=== PATIENT | male | born 1955 | race Caucasian/White ===

== ENCOUNTER 2017-09-17 05:18 | Day surgery (SDC) | payer BC ==
[~2017-09-17] VITALS: Ht 182.9 cm; Wt 166.0 kg
[2017-09-17] VITALS (9 sets, daily range): BP systolic 124–184; BP diastolic 58–90; PULSE 65–77; TEMP 97.5–98.5
[~2017-09-17 05:18] MED LIST: ASPIRIN 81M81 MG/TA2 PO; CIPRO 500MG TA500 MG PO; COZAAR100 MG PO; GLUCOPHAGE500 MG/TAB PO; HCTZ 25MG TAB25 MG PO; HUMIRA40 MG/0.8 MR; MITOMYCIN IV; NORVASC 10MG10 MG PO; VITAMIN E100 I3 PO
[2017-09-17] MEDS ORDERED: AVAPRO300 M1 PO (06:23)
[2017-09-17] MEDS ORDERED: HYGROTON 2525 MG/TAB PO (06:25)
[2017-09-18 01:52] VITALS: BP 149/66; PULSE 71; TEMP 98.5
[2017-09-18 05:09] VITALS: BP 147/68; PULSE 76; TEMP 98.1
== END 2017-09-18 09:30 | disposition home or self-care (01) ==
LOC: SDCO 05:18 → SURG 08:20 → SDCO 09-18 09:30
DX: R82.8 Abnormal findings on cytological and histological examination of urine (principal); N41.1 Chronic prostatitis; Z85.51 Personal history of malignant neoplasm of bladder; I10 Essential (primary) hypertension; L40.9 Psoriasis, unspecified; E66.9 Obesity, unspecified; M19.90 Unspecified osteoarthritis, unspecified site; E11.9 Type 2 diabetes mellitus without complications; Z79.84 Long term (current) use of oral hypoglycemic drugs; M06.9 Rheumatoid arthritis, unspecified; G47.33 Obstructive sleep apnea (adult) (pediatric); F17.210 Nicotine dependence, cigarettes, uncomplicated
CPT/HCPCS: OP; C1769; J0690; J2405; J2704; J3010; J7030; Q9967

== ENCOUNTER 2019-07-27 06:16 | Day surgery (SDC) | payer BC ==
[~2019-07-27] VITALS: Ht 182.9 cm; Wt 167.2 kg
[2019-07-27] VITALS (9 sets, daily range): BP systolic 125–165; BP diastolic 63–84; PULSE 79–91; TEMP 97.1–98
[~2019-07-27 06:16] MED LIST changes: +AVAPRO300 M1 PO; +HYGROTON 2525 MG/TAB PO
[2019-07-27] MEDS ORDERED: HYGROTON 2525 MG/TAB PO (06:50)
[2019-07-27] MEDS ORDERED: ALDACTONE 25MG25 M1 PO (06:51)
[2019-07-27] MEDS ORDERED: DIOVAN320 MG PO (06:51)
[2019-07-27] MEDS ORDERED: NORVASC 10MG10 MG PO (06:52)
[2019-07-27] MEDS ORDERED: HCTZ 25MG TAB25 MG PO (06:53)
[2019-07-27] MEDS ORDERED: VITAMIN E1000 U/CAP PO (06:54)
--- NOTE | 2019-07-27 06:54 | NUR ---
Patient did not bring a home medication list. Discussed medications with patient using the medication list from Dr. Gracia's office and from [facility] pharmacy. Patient states "I take some water pills and blood pressure pills". Listed medications to attempt to get the names of medications taken. Patient states "I think that's right" when medications listed. Completed medication reconciliation with patient, but he does not seem 100% sure of medications that he takes at home.
--- NOTE | 2019-07-27 11:00 | NUR ---
Patient arrived to the Surgical floor from PACU at this time, he is alert/oriented, vital signs stable, pain controlled, denies needs, tolerating Po intake
--- NOTE | 2019-07-27 18:37 | NUR ---
patient contniues to do well post TURBT, Vital signs stable, denies any pain, urine is clear/ yellow, no blood or clots noted, he is drinking plenty of water, stopping IVF per his request and made INT as he is drinking well, denies other needs
--- NOTE | 2019-07-27 20:45 | NUR ---
Pt. sitting up in bed at this time. Pt. is A&OX3, assessment complete. INT to rt. hand patent. Pt. voiding clear yellow urine. Pt. denies pain or other needs, call light within reach.
--- NOTE | 2019-07-28 06:08 | NUR ---
Pt. slept well through the night. Pt. remains A&Ox3. Urine remains Clear and yellow. Pt. denies needs.
[2019-07-28 08:06] VITALS: BP 140/71; PULSE 72; TEMP 97.7
--- NOTE | 2019-07-28 09:00 | NUR ---
Patient alert and oriented, answers questions appropriately. See assessment. No c/o urinary burning, frequency or hesitancy. Urinating adequate amounts. No c/o at this time.
--- NOTE | 2019-07-28 09:34 | NUR ---
Initial visit; Patient thanked [employer] for looking in on him and offering God's blessings.
--- NOTE | 2019-07-28 10:35 | NUR ---
Discharge instructions reviewed with patient, verbalized understanding. Discharged ambulatory to auto/home at 1039
== END 2019-07-28 10:35 | disposition home or self-care (01) ==
LOC: SDCO 06:16 → SURG 11:08 → SDCO 07-28 10:35
DX: N30.90 Cystitis, unspecified without hematuria (principal); Z85.51 Personal history of malignant neoplasm of bladder; I10 Essential (primary) hypertension; K50.90 Crohn's disease, unspecified, without complications; G47.33 Obstructive sleep apnea (adult) (pediatric); Z79.899 Other long term (current) drug therapy; Z79.82 Long term (current) use of aspirin; M06.9 Rheumatoid arthritis, unspecified; E11.9 Type 2 diabetes mellitus without complications; Z79.84 Long term (current) use of oral hypoglycemic drugs; E66.9 Obesity, unspecified
CPT/HCPCS: OP; J0690; J1100; J1885; J2405; J2704; J3010; J7030; Q9967

== ENCOUNTER 2020-04-18 06:03 | Day surgery (SDC) | payer BC ==
[~2020-04-18] VITALS: Ht 182.9 cm; Wt 163.4 kg
[~2020-04-18 06:03] MED LIST changes: +ALDACTONE 25MG25 M1 PO; +DIOVAN320 MG PO; +VITAMIN E1000 U/CAP PO
[2020-04-18 07:03] VITALS: BP 159/91; PULSE 79; TEMP 98.3
[2020-04-18] MEDS ORDERED: DIOVAN320 MG PO (08:08)
[2020-04-18 08:25] VITALS: BP 128/70; PULSE 79
[2020-04-18 08:40] VITALS: BP 140/73; PULSE 68; TEMP 97
[2020-04-18 08:55] VITALS: BP 147/85; PULSE 67
== END 2020-04-18 09:20 | disposition home or self-care (01) ==
LOC: SDCO
DX: Z12.11 Encounter for screening for malignant neoplasm of colon (principal); K57.30 Diverticulosis of large intestine without perforation or abscess without bleeding; I10 Essential (primary) hypertension; Z85.51 Personal history of malignant neoplasm of bladder; E11.69 Type 2 diabetes mellitus with other specified complication; E66.01 Morbid (severe) obesity due to excess calories; Z68.43 Body mass index [BMI] 50.0-59.9, adult; L40.50 Arthropathic psoriasis, unspecified; F17.210 Nicotine dependence, cigarettes, uncomplicated; Z79.82 Long term (current) use of aspirin; G47.33 Obstructive sleep apnea (adult) (pediatric)
CPT/HCPCS: J0330; J2704

== ENCOUNTER 2021-09-04 06:14 | Day surgery (SDC) | payer MEDICARE ==
--- NOTE | 2021-09-03 08:25 | NUR ---
Patient was called by KEN Menjivar to complete a pre-op history and confirm time before his arrival tomorrow. Patient stated he is driving himself home on Wednesday, 09.05.21 because he does not have a ride home on , 09.04.21. RN added a note to his chart.
[2021-09-04] VITALS (13 sets, daily range): BP systolic 120–148; BP diastolic 49–82; PULSE 70–91; TEMP 97.2–98.3
[~2021-09-04] VITALS: Ht 182.9 cm; Wt 171.4 kg
[2021-09-04] MEDS ORDERED: NATURAL E400 IU PO (07:44)
[2021-09-04] MEDS ORDERED: MULTIVITAMIN SEN PO (07:47)
[2021-09-04] MEDS ORDERED: EPA FISH OIL1 SGL PO (07:49)
--- NOTE | 2021-09-04 10:15 | NUR ---
Patient received post op from Nithya. Patient to room 346, Vitals stable on room air. Ice water provided, denies nausea. Rolon to SHIVAM, CBI slow to moderate rate. Will monitor.
--- NOTE | 2021-09-04 12:35 | NUR ---
Patient frustrated by having smith. He has complaints of burning & discomfort. Did call . Able to DC msith later this afternoon if urine stays clear. Cbi clamped. Patient not wanting to eat anything or move with smith in place. Patient was offered azo order & lidojelly. He did not feel lidojelly would help at all. Will continue to monitor.
--- NOTE | 2021-09-04 14:36 | NUR ---
Upon assessment patient expressed his pain level being a 5/10 and increasing to a 7/10. Patient was given the option to have a topical lidocaine or pain medication to alleviate the pain. Patient refused both options. Patient was given pyridium.
--- NOTE | 2021-09-04 15:33 | NUR ---
Rolon catheter removed. Patient tolerated well. Thankful to have the catheter out.
--- NOTE | 2021-09-04 19:08 | NUR ---
Patient has done well with voiding trail. more plesant. tolerated dinner. hopeful for dc home in am.
[2021-09-05 05:00] VITALS: BP 129/70; PULSE 77; TEMP 97.6
--- NOTE | 2021-09-05 05:53 | NUR ---
Patient calm and cooperative throughout the night. Patient voiding without difficulty. No new issues noted or reported by patient. Patient is looking forward to going home today.
[2021-09-05 07:55] VITALS: BP 152/70; PULSE 83; TEMP 98.2
--- NOTE | 2021-09-05 10:33 | NUR ---
Initial visit; Patient declined spiritual care following [employer] Operator's introduction of herself.
[2021-09-05 11:58] VITALS: BP 154/76; PULSE 81; TEMP 97.5
--- NOTE | 2021-09-05 12:51 | NUR ---
pt met criteria for discharge, vss. Pain controlled. Pt voiding adequately. Discharge instructions reviewed, pt verbalized understanding. Iv removed with no complications, catheter intact. Pt aware of f/u appt and of prescriptions to belt picker. Pt dc to home via ambulatory accompanied by business intern.
== END 2021-09-05 12:53 | disposition home health service (06) ==
LOC: SDCO 06:14 → SURG 09:49 → SDCO 14:00
DX: C67.9 Malignant neoplasm of bladder, unspecified (principal); I10 Essential (primary) hypertension; E11.9 Type 2 diabetes mellitus without complications; E66.01 Morbid (severe) obesity due to excess calories; M19.90 Unspecified osteoarthritis, unspecified site; G47.33 Obstructive sleep apnea (adult) (pediatric); Z79.82 Long term (current) use of aspirin; Z79.84 Long term (current) use of oral hypoglycemic drugs; Z79.899 Other long term (current) drug therapy; Z99.89 Dependence on other enabling machines and devices; Z68.43 Body mass index [BMI] 50.0-59.9, adult; Z87.891 Personal history of nicotine dependence
CPT/HCPCS: OP; C1769; J0690; J1100; J2405; J2704; J3010; J7120; Q9967

== ENCOUNTER 2021-10-22 10:39 | Day surgery (SDC) | payer MEDICARE, OTHER ==
[2021-10-22] VITALS (13 sets, daily range): BP systolic 124–165; BP diastolic 59–93; PULSE 75–95; TEMP 97.1–97.6
[~2021-10-22] VITALS: Ht 180.3 cm; Wt 163.0 kg
[~2021-10-22 10:39] MED LIST changes: +COMPLETE SENIOR1 TA1 PO; +EPA FISH OIL1 SGL PO; +NATURAL E400 IU PO
--- NOTE | 2021-10-22 15:00 | NUR ---
Patient brought to unit by PACU s/p TURBT. Patient is awake and alert. Moving all extremities well - patient was able to scoot from gurney to room bed. He reports minimal pain. Patient continues on CBI with smith catheter draining peach colored urine. 20G IV patent to right hand. Patient oriented to room and visiting hours. Call light is within his reach. He denies any needs at this time
--- NOTE | 2021-10-22 16:00 | NUR ---
Patient resting in sitting position in bed. He continues on CBI with smith continuing to drain peach, clear urine to drainage bag. He denies having any pain. Denies any nausea. Reports feeling the urge to urinate. He is tolerating drinking water. He has declined ordering a dinner tray (on a clear liquid diet) in the hopes that he may be discharged home this evening. Patient given instructions on how to order dinner if he changes his mind. Call light within his reach. He denies further needs at this time
--- NOTE | 2021-10-22 17:20 | NUR ---
Patient c/o "bad" pain and that he feels "like he needs to piss". Smith noted to have 500mL peach colored output in drainage back. Patient declined PRN roxycodone or B&O suppository. Charge nurse notified. Charge nurse irrigated smith with immediate increase in urine output noted. Charge nurse irrigated smith x 2 more. Smith draining freely to urine bag with clear to light pink urine output noted. Patient reporting pain relief and feels relieved of the urge to urinate
--- NOTE | 2021-10-23 01:22 | NUR ---
PATIENT ALERT AND ORIENTED. C/O FEELINGS OF FULLNESS. 800 ML IN BLADDER PER BLADDER SCAN. URINE IS CLEAR PALE YELLOW IN TUBING. DISCUSSED WITH PATIENT THE NEED TO MOVE, EITHER STAND OR LAY FLAT TO HELP HURT DRAIN SINCE IT WAS MOST LIKELY GETTING CLAMPED OFF DUE TO POSITIONING. PATIENT THEN STATES HE WANTS THE HURT OUT NOW, CALL TO DR RAMIREZ PLACED AND ORDER FOR HURT TO BE DC'D. 15 ML DRAINED FROM BALLOON AND HURT WAS PULLED. PATIENT AMBULATED TO BATHROOM AND VOIDED 800 OF PINK TINGED URINE. VERBALIZED UNDERSTANDING OF 6 CUP ROUTINE. NO FURTHER NEEDS AT THIS TIME. PT RESTING COMFORTABLY.
[2021-10-23 04:05] VITALS: BP 159/75; PULSE 87; TEMP 97.6
--- NOTE | 2021-10-23 07:03 | NUR ---
Shift report received from caustic cresylate shift superintendent RN. Patient resting in side lying position. CPAP machine on. Call light is within his reach.
--- NOTE | 2021-10-23 08:36 | NUR ---
Patient Health Summary, Discharge Summary, and Home Meds printed and reviewed with patient. Stressed the importance of keeping follow up appointments. Belonging were gathered by the patient included his watch and cell phone. Pt. self-ambulated to vehicle and was escorted by UTILITY MECHANIC SUPERVISOR for ride home.
== END 2021-10-23 08:35 | disposition home or self-care (01) ==
LOC: SDCO 10:39 → SURG 14:50 → SDCO 10-23 08:35
DX: C67.5 Malignant neoplasm of bladder neck (principal); N32.89 Other specified disorders of bladder; L40.50 Arthropathic psoriasis, unspecified; Z87.891 Personal history of nicotine dependence
CPT/HCPCS: OP; J0690; J1100; J2405; J2704; J3010; J3480; J7120